=== PATIENT | female | born 2000 | race Caucasian/White ===

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

== ENCOUNTER 2021-09-05 16:23 | Emergency (ER) | payer OTHER ==
[~2021-09-05] VITALS: Ht 165.1 cm; Wt 45.4 kg
[2021-09-05] MEDS ORDERED: Norco 5-325 Ta1 EACH PO (16:56)
[2021-09-05] MEDS ORDERED: IBUP600 PO (16:56)
== END 2021-09-05 17:07 | disposition home or self-care (01) ==
LOC: ER 16:23
DX: K04.7 Periapical abscess without sinus (principal); F17.200 Nicotine dependence, unspecified, uncomplicated
CPT/HCPCS: 99283; A9270

== ENCOUNTER → 2022-01-20 | Outpatient (CLI) | payer OTHER ==
[~2022-01-20] MED LIST changes: +IBUP600 PO; +Norco 5-325 Ta1 EACH PO
[2022-01-21 09:46] LABS: Candida species (DNA Probe) Positive (NEGATIVE); G. vaginalis (DNA Probe) Negative (NEGATIVE); T. vaginalis (DNA Probe) Negative (NEGATIVE)
== END ==
LOC: LAB 15:14 → LAB SHORT 15:14
PROVIDERS: Registered Nurse Community Health
DX: N89.8 Other specified noninflammatory disorders of vagina (principal); L29.3 Anogenital pruritus, unspecified
CPT/HCPCS: 87480; 87510; 87660